=== PATIENT | female | born 1970 | race Caucasian/White ===

== ENCOUNTER → 2016-09-19 | Outpatient (CLI) | payer OTHER | END | disposition home or self-care (01) | LOC: CFH 09:46 | PROVIDERS: ATTEND Obstetrics & Gynecology | DX: Z12.31 Encounter for screening mammogram for malignant neoplasm of breast (principal) | CPT/HCPCS: 77063; G0202 ==

== ENCOUNTER → 2017-05-04 | Outpatient (CLI) | payer OTHER ==
[~2017-05-04] MED LIST: 5-HY100C3 PO; MELA10TA PO; MIRA25TA PO; OMEP10CA4 PO
[2017-05-04 15:10] LABS: HEMATOCRIT 46.4 % (34.6-47.8); HEMOGLOBIN 15.6 g/dL (11.7-16.4); WHITE BLOOD COUNT 8.3 x10^3/uL (3.4-10)
[2017-05-04 15:23] LABS: BLOOD UREA NITROGEN 10 mg/dL (7-18)
[2017-05-04 15:24] LABS: ASPARTATE AMINO TRANSFERASE 16 U/L (15-37)
== END | disposition home or self-care (01) ==
LOC: STAR 14:21
PROVIDERS: ATTEND Obstetrics & Gynecology
DX: N92.0 Excessive and frequent menstruation with regular cycle (principal); Z88.0 Allergy status to penicillin
CPT/HCPCS: 36415; 80053; 84703; 85025

== ENCOUNTER 2017-05-08 06:06 | Day surgery (SDC) | payer OTHER ==
[~2017-05-08] VITALS: Ht 157.5 cm; Wt 86.9 kg
[2017-05-08] MEDS ORDERED: LACTATED RINGERS 1,000 ML IV SCH (06:22)
[2017-05-08] MEDS ORDERED: BUPIVACAINE/PF 0.5% ONE (06:42)
[2017-05-08] MEDS ORDERED: EPINEPHRINE 1 MG/ML, 1ML ONE (06:42)
[2017-05-08] MEDS ORDERED: FLUORESCEIN SODIUM 500 MG/5 ML ONE (06:42)
[2017-05-08] MEDS ORDERED: FENTANYL PF 100 MCG/2ML ONE ×3 (06:50→09:40)
[2017-05-08] MEDS ORDERED: MIDAZOLAM 1 MG/ML, 2ML ONE (06:50)
[2017-05-08] MEDS ORDERED: KETAMINE 10 MG/ML, 20ML ONE (06:50)
[2017-05-08] MEDS ORDERED: PROPOFOL 10 MG/ML, 20ML ONE (06:56)
[2017-05-08] MEDS ORDERED: LIDOCAINE-MPF 2% ,5ML ONE (06:56)
[2017-05-08] MEDS ORDERED: SUCCINYLCHOLINE 20 MG/ML, 10ML ONE (06:56)
[2017-05-08] MEDS ORDERED: ROCURONIUM 10 MG/ML ONE (06:56)
[2017-05-08 06:59] LABS: HCG UR LOT HCG7030192
[2017-05-08] MEDS ORDERED: CEFAZOLIN 1,000 MG ONE ×2 (07:15)
[2017-05-08 07:21] LABS: HCG UR OBC PASS
[2017-05-08] MEDS ORDERED: EPHEDRINE 50 MG/ML, 1ML ONE (07:29)
[2017-05-08] MEDS ORDERED: GLYCOPYRROLATE 0.2MG/1ML, 5ML ONE (07:29)
[2017-05-08] MEDS ORDERED: DEXAMETHASONE 4 MG/ML, 1ML ONE ×2 (08:07)
[2017-05-08] MEDS ORDERED: ONDANSETRON 2MG/ML, 2ML ONE (08:07)
[2017-05-08] MEDS ORDERED: NEOSTIGMINE 1 MG/ML, 10ML ONE (08:53)
[2017-05-08] MEDS ORDERED: ACETAMINOPHEN 325 MG TABLET ONE (09:21)
[2017-05-08] MEDS ORDERED: ACETAMINOPHEN 650 MG/20.3 ML UDC ONE (09:22)
[2017-05-08] MEDS ORDERED: OXYcodone 5 MG/5 ML ORAL.SOL UDC ONE (09:22)
[2017-05-08] MEDS ORDERED: KETOROLAC 30 MG/1 ML ONE (09:27)
[2017-05-08] MEDS ORDERED: PROMETHAZINE 25 MG/ML, 1ML IV PRN (09:30)
[2017-05-08] MEDS ORDERED: KETOROLAC 30 MG/1 ML IV PRN (09:30)
[2017-05-08] MEDS ORDERED: ACETAMINOPHEN 325 MG TABLET PO PRN (09:30)
[2017-05-08] MEDS ORDERED: MEPERIDINE/PF 25MG/0.5ML IVPush PRN (09:30)
[2017-05-08] MEDS ORDERED: OXYcodone 5 MG/5 ML ORAL.SOL UDC PO PRN (09:30)
[2017-05-08] MEDS ORDERED: HYDROmorphone 1 MG/ML, 1ML IV PRN (09:30)
[2017-05-08] MEDS: FENTANYL PF 100 MCG/2ML IV PRN ×3 (09:40→10:20)
[2017-05-08] MEDS ORDERED: OXYcodone/APAP 5/325MG TABLET ONE (13:22)
[2017-05-08] MEDS ORDERED: OXYcodone/APAP 5/325MG TABLET PO PRN (13:30)
[2017-05-08 14:38] LABS: HEMATOCRIT 44.4 % (34.6-47.8); HEMOGLOBIN 15.3 g/dL (11.7-16.4); WHITE BLOOD COUNT 16.7 x10^3/uL (3.4-10)
[2017-05-08 15:08] LABS: DIFF TOTAL CELLS COUNTED 100 CELL DIFF
[2017-05-08 15:12] LABS: VERIFY COUNTS? YES
== END 2017-05-08 15:55 ==
LOC: OUT 06:06
PROVIDERS: ATTEND Obstetrics & Gynecology
DX: N92.1 Excessive and frequent menstruation with irregular cycle (principal); N93.8 Other specified abnormal uterine and vaginal bleeding; Z30.432 Encounter for removal of intrauterine contraceptive device; Z98.890 Other specified postprocedural states
CPT/HCPCS: 36415; 58262; 58301; 81025; 85025; 86850; 86900; 88307; J0171; J0330; J0690; J1100; J1885; J2250; J2405; J2704; J2710; J3010; J3490; J7120